=== PATIENT | female | born 1990 | race Caucasian/White ===

== ENCOUNTER 2020-09-29 22:25 | Emergency (ER) | payer OTHER ==
[~2020-09-29 22:25] MED LIST: BENTYL 10MG CAP10 MG PO; KEFLEX CAP 500500 MG PO; NAPROSYN500 MG PO; ONDANSETRON ODT4 MG PO; PERCOCET 5/325 T1 EA PO; ZOFRAN4 MG PO
== END 2020-09-30 00:15 | disposition home or self-care (01) ==
LOC: ER1 22:25
DX: R07.9 Chest pain, unspecified (principal); R55 Syncope and collapse; E11.9 Type 2 diabetes mellitus without complications; I10 Essential (primary) hypertension; Z90.49 Acquired absence of other specified parts of digestive tract; F17.210 Nicotine dependence, cigarettes, uncomplicated
CPT/HCPCS: 99284